=== PATIENT | female | born 1960 | race Caucasian/White ===

== ENCOUNTER → 2021-06-18 | Outpatient (CLI) | payer BC | END | disposition home or self-care (01) | LOC: LAB SHORT 11:35 | DX: D22.5 Melanocytic nevi of trunk (principal) | CPT/HCPCS: 88305 ==

== ENCOUNTER → 2025-03-06 | Outpatient (CLI) | payer MEDICARE, OTHER ==
[2025-03-08 11:42] LABS: CALPROTECTIN,FECAL <5 ug/g (<=49)
== END ==
LOC: LAB SHORT 08:00 → LAB 08:00
DX: R19.5 Other fecal abnormalities (principal)
CPT/HCPCS: 83993